=== PATIENT | male | born 1985 | race Caucasian/White ===

== ENCOUNTER 2021-08-29 23:47 | Inpatient (IN) | payer OTHER ==
[~2021-08-29] VITALS: Ht 190.5 cm; Wt 114.8 kg
[2021-08-30] VITALS: BP 145/103
[2021-08-30 00:56] LABS: CALCIUM 8.8 mg/dL (8.5-10.1); CREATININE 1.3 mg/dL (0.7-1.3)
[2021-08-30 01:06] LABS: TOTAL BILIRUBIN 1.2 mg/dL (0.2-1.0); TOTAL PROTEIN 8.1 g/dL (6.4-8.2)
[2021-08-30 01:27] LABS: POTASSIUM 3.9 mmol/L (3.5-5.1)
[2021-08-30 01:31] LABS: ABSOLUTE NEUTROPHILS 8.8 thou/uL (1.4-8.2); BASOPHILS 0.7 % (0.0-2.0); EOSINOPHILS 0.4 % (0.0-3.0); HEMATOCRIT 44.4 % (42.0-52.0); HEMOGLOBIN 14.7 gm/dL (14.0-18.0); LYMPHOCYTES 14.9 % (24.0-44.0); MCH 29.6 pg (26.0-34.0); MCHC 33.1 g/dL (28.0-37.0); MCV 89.2 fL (80.0-100.0); MONOCYTES 6.5 % (1.0-8.0); PLATELET COUNT 268 thou/uL (150-400); POLYS 77.5 % (36.0-66.0); RBC 4.98 mil/uL (4.50-6.00); RDW 13.5 % (10.5-14.5); WBC 11.3 thou/uL (4.0-11.0)
[2021-08-30] MEDS ORDERED: PROTONIX40 M2 PO (03:50)
[2021-08-30 04:12] LABS: INR 0.97; PROTIME 10.6 Seconds (10.5-12.1)
[2021-08-30 07:35] VITALS: BP 117/77
--- NOTE | 2021-08-30 09:23 | NUR ---
CALL PHARMACY. PT ORDER WAS A MULTI-VITAMIN WITH IRON. THE MEDICATION PROVIDED FROM PHARMACY WAS WITHOUT IRON. A VITAMIN WITH IRON DELIVERED FROM PHARMACY AND THE VITAMIN WITHOUT IRON WAS GIVEN TO THE TRANSITIONAL STUDIES INSTRUCTOR.
[2021-08-30 09:44] LABS: AMP/METHAMP POSITIVE (Negative); BARBITURATES Negative (Negative); BENZODIAZEPINES Negative (Negative); COCAINE Negative (Negative); METHADONE Negative (Negative); OPIATES Negative (Negative); PCP Negative (Negative)
[2021-08-30 10:53] VITALS: BP 114/84
--- NOTE | 2021-08-30 11:32 | EKG ---
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
[2021-08-30 12:00] VITALS: BP 141/77
[2021-08-30 16:00] VITALS: BP 130/87
[2021-08-30 19:22] VITALS: BP 137/81
--- NOTE | 2021-08-31 04:29 | NUR ---
RECEIVED THE PATIENT AT 1900H.PATIEN TIS ALERT AND ORIENTED X4.ON ROOM AIR BREATHING SPONTANEOUSLY.NOT IN PAIN OR DISTRESS.ALL NEEDS ATTENDED.TO CONTINOUSLY MONITOR.
[2021-08-31 05:18] VITALS: BP 139/101
[2021-08-31 07:52] VITALS: BP 137/98
--- NOTE | 2021-08-31 11:58 | 2DMMODE ---
[facility] [place] [address] 2 D/M-MODE ECHOCARDIOGRAM Name: JAMIN MCINTOSH Room #: 218-P ADM IN M.R.#: [id number] Admission: 08/30/21 Attend Phys: Yvon Selby MD Discharge: Date of : 83 Report #: [id number] THIS REPORT FOR: cc: [facility] - Clinic physician unknown [facility] - Clinic physician unknown Duncan Moreira MD [facility] ~ APPROVED REPORT Study performed: 08/30/2021 09:33:28 EXAM: Comprehensive 2D, Doppler, and color-flow Echocardiogram Patient Location: Bedside Room #: ER-7 Status: on-call BSA: 2.37 HR: 70 bpm BP: 111/77 mmHg Rhythm: NSR Other Information Study Quality: Adequate Risk Factors: Cardiac Risk Factors: HTN Indications Elevated Troponin Chest Pain 2D Dimensions IVSd: 12.20 (7-11mm) LVOT Diam: 22.00 (18-24mm) LVDd: 49.35 mm PWd: 12.57 (7-11mm) Ascending Ao: 35.45 (22-36mm) LVDs: 32.71 (25-40mm) Aortic Root: 29.61 mm LV Single Plane 4CH: 56.97 % LV Single Plane 2CH: 69.19 % Volumes Left Atrial Volume (Systole) Single Plane 4CH: 61.97 mL Single Plane 2CH: 61.23 mL LA ESV Index: 28.00 mL/m2 Aortic Valve [facility] [address] [place] [address] 2 D/M-MODE ECHOCARDIOGRAM Name: DAYNAJAMIN GUIDO Room #: 218-P [facility] IN M.R.#: [id number] Admission: 08/30/21 Attend Phys: Yvon Selby MD Discharge: Date of : 83 Report #: [id number] LVOT Max P.21 mmHg LVOT Max V: 1.14 m/s Mitral Valve E/A Ratio: 1.0 MV Decel. Time: 276.53 ms MV E Max Abhishek.: 0.68 m/s MV A Abhishek.: 0.71 m/s MV PHT: 80.19 ms IVRT: 83.04 ms TDI E/Lateral E': 8.50 E/Medial E': 9.71 Medial E' Abhishek.: 0.07 m/s Preload (E/e): 3.00 (0-8m/s) Lateral E' Abhishek.: 0.08 m/s Pulmonary Valve PV Peak Abhishek.: 0.84 m/s PV Peak Gr.: 2.79 mmHg Pulmonary Vein P Vein S: 0.48 m/s P Vein A: 0.19 m/s P Vein D: 0.24 m/s P Vein A Dur.: 138.4 msec P Vein S/D Ratio: 2.00 Tricuspid Valve RAP Estimate: 7.00 mmHg Left Ventricle The left ventricle is normal size. There is normal LV segmental wall motion. There is normal left ventricular wall thickness. Left ventricular systolic function is normal. The left ventricular ejection fraction is within the normal range. LVEF is 60-65%. The left ventricular diastolic function is normal. Right Ventricle The right ventricle is normal size. The right ventricular systolic function is normal. Atria The left atrium size is normal. The right atrium size is normal. Aortic Valve The aortic valve is normal in structure. No aortic regurgitation is present. There is no aortic valvular stenosis. [facility] [address] [place] [address] 2 D/M-MODE ECHOCARDIOGRAM Name: JAMIN MCINTOSH GUIDO Room #: 218-P [facility] IN .R.#: [id number] Admission: 08/30/21 Attend Phys: Yvon Selby MD Discharge: Date of : 83 Report #: [id number] Mitral Valve The mitral valve is normal in structure. Systolic anterior motion of the mitral chordae is present with no significant gradient. Mild mitral regurgitation. No evidence of mitral valve stenosis. Tricuspid Valve The tricuspid valve is normal in structure. There is no tricuspid valve regurgitation noted. Pulmonic Valve The pulmonary valve is normal in structure. Trace pulmonic regurgitation. Great Vessels The aortic root is normal in size. The ascending aorta is normal in size. IVC is normal in size and collapses >50% with inspiration. Pericardium There is no pericardial effusion. <Conclusion> Left ventricular systolic function is normal. There is normal LV segmental wall motion. LVEF is 60-65%. Normal diastolic function The aortic valve is normal in structure. No aortic regurgitation or stenosis The mitral valve is normal in structure. Systolic anterior motion of the mitral chordae is present with no significant gradient. Mild mitral regurgitation. Pulmonary artery pressure could not be reliably ascertained There is no pericardial effusion. <ELECTRONICALLY SIGNED> By: Duncan Moreira MD, FACC 08/31/21 1158 1158 1158 Duncan Moreira MD, FACC /INF
[2021-08-31 12:23] VITALS: BP 137/98
--- NOTE | 2021-08-31 12:40 | EKG ---
[place] [address] 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 VENDOR MANAGEMENT ASSOCIATE by Duncan Moreira [email or web address] <ELECTRONICALLY SIGNED> By: Duncan Moreira MD, [facility] 08/31/21 1240 0 Duncan Moreira MD, [facility] /EPI
== END 2021-08-31 15:40 | disposition home or self-care (01) | DRG 282 ==
LOC: ER 23:47 → EROBS 08-30 01:53 → 2N 08-30 11:13
PROVIDERS: Emergency Medicine; Nurse Practitioner Family; ADMIT Hospitalist; ATTEND Hospitalist
DX: I21.4 Non-ST elevation (NSTEMI) myocardial infarction (principal); Z72.89 Other problems related to lifestyle; I10 Essential (primary) hypertension; F10.10 Alcohol abuse, uncomplicated; K21.9 Gastro-esophageal reflux disease without esophagitis; F14.10 Cocaine abuse, uncomplicated; Z20.822 Contact with and (suspected) exposure to COVID-19; F15.90 Other stimulant use, unspecified, uncomplicated; Z82.49 Family history of ischemic heart disease and other diseases of the circulatory system; Z79.82 Long term (current) use of aspirin; Z79.899 Other long term (current) drug therapy; Z23 Encounter for immunization
CPT/HCPCS: 10081